=== PATIENT | male | born 1965 | race Caucasian/White ===

== ENCOUNTER → 2020-09-18 | Outpatient (CLI) | payer OTHER ==
--- NOTE | 2020-09-18 12:47 | RAD ---
Single view of the left hand and 2 views of the left index finger without comparison for finger surge ry. FINDINGS: There are 2 K wires fixating the distal interphalangeal joint of the index finger. These wi res are external fixators. Alignment is maintained. Robust arthritic changes about the joint are note d. No other osseous abnormality. IMPRESSION: 1. Postsurgical and chronic changes of the second distal phalange of joint as described. Electronically signed by: Jesse Thomas MD (09/18/2020 12:44 PM) [id number]
== END ==
LOC: DXRAD 09:09
PROVIDERS: ATTEND Orthopaedic Surgery
DX: M24.642 Ankylosis, left hand (principal); Z98.1 Arthrodesis status
CPT/HCPCS: 73140